=== PATIENT | female | born 2000 | race Native Hawaiian/Other Pacific Islander ===

== ENCOUNTER 2024-02-22 11:10 | Outpatient (CLI) | payer OTHER ==
--- NOTE | 2024-02-23 16:50 | Ultrasound Report ---
PROCEDURE: Pelvic w/Transvaginal INDICATIONS: PCOS TECHNIQUE: Real-time scanning was performed of the pelvic organs, with image documentation. Additional endovagi nal scanning was necessary due to incomplete visualization of the adnexal and endometrial structures by transabdominal scanning. COMPARISON: None. FINDINGS: Uterus: Uterus is anteverted and normal in size at 7.5 x 3.5 x 4.2 cm. The myometrium is heterogene ous. The endometrium measures 12.6 mm in combined thickness and is heterogeneous. No sonographic bakari dence of uterine fibroids. Cervix and vagina are normal. Ovaries: The right ovary measures 2 x 1.3 x 1.1 cm, with a calculated ovarian volume of 1.47 cc. Th e left ovary measures 2.5 x 2 x 2 cm, with a calculated ovarian volume of 5.18 cc. The ovaries have a normal sonographic appearance. Less than 12 follicles can be seen in each ovary. No adnexal priscila s are seen. No cystic lesions measuring greater than 3 cm. Other: Trace pelvic free fluid, likely physiologic. IMPRESSION: 1.Normal sonographic appearance of the uterus. Endometrial thickness is 12.6 mm and heterogeneous. 2.Normal sonographic appearance of the bilateral ovaries. Reviewed by: Jeffry Fernandez MD on 02/23/2024 4:49 PM PDT Approved by: Jeffry Fernandez MD on 02/23/2024 4:49 PM PDT Station ID: [id number]
== END 2024-02-22 11:11 | disposition home or self-care (01) ==
LOC: DI 11:10
PROVIDERS: ATTEND Student in an Organized Health Care Education/Training Program
DX: N91.5 Oligomenorrhea, unspecified (principal); R10.9 Unspecified abdominal pain; Z87.42 Personal history of other diseases of the female genital tract

== ENCOUNTER 2024-03-11 12:36 | Outpatient (CLI) | payer OTHER ==
--- NOTE | 2024-03-11 13:23 | Sleep Patient Instructions ---
Sleep Center Visit Summary - Patient Visit Information Reason for Visit: Initial consult for evaluation of sleep disordered breathing and other sleep issues. - Patient Instructions Instructions Attached: Sleep Study Home Monitor Additional Instructions: You will be completing a sleep study, either an in-lab polysomnography (PSG) or home sleep study (HST). You will follow-up in the sleep care office after the sleep study is completed to hear the results and talk about therapy, if needed. You will be called by our office staff to schedule this appointment, but you may contact us with any questions. - Clinic Information Contact: [facility] [address] [place] [address] [email or web address] T: [phone]
--- NOTE | 2024-03-11 13:25 | SLEEP CARE CONSULTATION ---
Information from patient questionnaire entered by Karina Celestin. I have reviewed and concur with the information entered by Karina Celestin. This document represents the service I personally performed and the decisions made by me, Lala Parks ARNP. History of Present Illness Service Date and Time: 03/11/2024 1236 Reason for Visit: New patient Chief Complaint: reports: Insomnia, Snoring, Observed pauses in breathing, Fatigue, Other (TEETH GRINDING, SLEEP TALKING) Date of Onset: 10+YRS Usual bedtime: 2300 Time it takes to fall asleep: 15-30MINS Snores at night: Yes Observed to quit breathing while asleep: Yes Sleeps alone due to snoring: No Number of times waking at night: 1-2 Reasons for waking at night: reports: Choking (had an experience like this), Snoring, Gasping for air, Bathroom Toss, Turn, or Twitch while sleeping: Yes Recalls having dreams: Yes Usually gets out of bed at: VARIES MOSTLY 0700 Feels refreshed in the morning: No Morning headache: Yes (1-2 times a month) Sleepy or fatigued during the day: Yes Ever fallen asleep while driving: No Takes day naps: Yes (couple times a month) Dreams during day naps: Yes Prior sleep studies: No Additional HPI information: I had the pleasure of seeing JACQUELINE RICARDO today regarding the possibility of her having a sleep disorder. Her current complaints are insomnia, snoring, observed pauses in breathing, fatigue, teeth grinding and sleep talking. Her tells her that she grinds her teeth at night, snoring and pauses in breathing. She says she had ground her teeth since she was a teenager. She feels like she always has a dry throat and wakes up with dry mouth every morning. She has woke up feeling like she is gasping for air and once she felt like she was choking. She does not feel rested in the morning, despite trying to get 7-8 hours of sleep at night. 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 Patient is and lives in . Have you smoked in the past 12 months: Yes (vapes) Cigarettes per day (20/pack): 20 Years of smokin Quit date: 2022 Smoking Pack Years: 6.0 Alcohol use: Yes Alcohol amount and frequency: 1-2 BOTTLES VERY RARE Caffeine use: Yes Caffeine amount and frequency: 1-2 CUPS EVERYDAY Family History Family history of sleep disordered breathing: Yes Family Hx Sleep Apnea: Mother: Snoring, Father: Snoring, Sibling: Snoring, Grandparent: Snoring Allergies and Home Medications Known drug allergies: No Drug allergies reviewed: Yes Home medication list reviewed: Yes (as listed) Allergy and home medication list: Allergies No Known Drug Allergies Allergy (Verified 03/09/24 14:02) Home Medications Cranberry Fruit [Cranberry] See Rx Instructions .ROUTE .COMPLEX 03/09/24 [History Confirmed 03/09/24] Lactobacillus Combination No.4 [Probiotic] See Rx Instructions .ROUTE .COMPLEX 03/09/24 [History Confirmed 03/09/24] [place]-3/Dha/Epa/Fish Oil [Fish Oil 1,000 mg Softgel] See Rx Instructions .ROUTE .COMPLEX 03/09/24 [History Confirmed 03/09/24] Review of Systems Weight gain over past 5 years: 40 Cardiovascular: reports: palpitations, chest pain. denies: high blood pressure Gastrointestinal: reports: heartburn, nausea, diarrhea, abdominal pain Neurological: reports: headaches Psychiatric: reports: anxiety Ear/Nose/Throat: reports: nasal congestion, sinus problems, dry mouth/throat. denies: tonsillectomy Endocrine: reports: sluggishness, too hot or cold Musculoskeletal: reports: neck pain, back pain, muscle pain or cramping Immunologic: reports: sneezing Physical Exam Vital signs obtained and entered by: KARINA Townsend MA Blood Pressure: 113/67 (LEFT ARM) Cuff size: long Heart Rate: 67 O2 Saturation: 98 Height: 5 ft 5 in Weight: 180 lb 9.6 oz Body Mass Index: 30.0 BMI Classification: Obese Neck circumference: 14.75 Mouth and throat: narrow oropharynx Soft palate: long Hard palate: normal Uvula: normal Uvula visualization: 25% Mallampati Class III Tongue: enlarged in size with teeth del cid on lateral edges Tonsils: small Neck: normal w/o lymphadenopathy or thyromegaly Heart: regular rate and rhythm Lungs: clear bilaterally Impression and Plan 1. Suspected Obstructive Sleep Apnea-Hypopnea Syndrome, as suggested by a history of loud and irregular snoring, observed cessation of breath while asleep, gasping or choking in sleep, unrefreshed sleep, cognitive impairment, and excessive daytime sleepiness. Narrow oropharynx and obesity are common predisposing factors for obstructive sleep apnea-hypopnea syndrome. I recommend proceeding to polysomnography to confirm the diagnosis and to assess severity. If the patient has significant sleep disordered breathing, a manual CPAP titration study will also be performed to find the optimal treatment pressure. I informed the patient of what the sleep studies involve and after some discus yamile, obtained agreement to proceed. The pathophysiology of obstructive sleep apnea-hypopnea syndrome was discussed with the patient and health risks of cardiovascular and cerebrovascular disease if not treated. Risks of drowsy driving discussed in detail and patient advised to avoid long distance driving and to anchor tack puller at the first sign of drowsiness. Patient agreed to plan. * Schedule polysomnography +- manual CPAP titration study and return in 1-2 weeks after the study to discuss result and initiate therapy. * Avoid long distance driving or driving when feeling sleepy. * Avoid alcohol, sedative and muscle relaxant around bedtime. * Attempt to lose weight. * Review instructions provided by trained office staff on how to prepare for the sleep study. * Return for follow-up after sleep study completed. Visit Type: In Office Provider Statement: I spent 100% of the Face to Face Visit with the patient with greater than 50% spent counseling the patient and coordination of care.
[2024-03-11 13:28] VITALS: BP 113/67; O2SAT 98
== END 2024-03-11 12:37 | disposition home or self-care (01) ==
LOC: SC 12:36
PROVIDERS: ATTEND Nurse Practitioner Family
DX: R06.83 Snoring (principal); R06.81 Apnea, not elsewhere classified; G47.8 Other sleep disorders; R41.89 Other symptoms and signs involving cognitive functions and awareness; G47.10 Hypersomnia, unspecified; E66.9 Obesity, unspecified; Z68.30 Body mass index [BMI] 30.0-30.9, adult
CPT/HCPCS: 99203; 99212

== ENCOUNTER 2024-03-27 09:12 | Outpatient (CLI) | payer OTHER | END 2024-03-27 09:13 | disposition home or self-care (01) | LOC: SC 09:12 | PROVIDERS: ATTEND Nurse Practitioner Family | DX: G47.33 Obstructive sleep apnea (adult) (pediatric) (principal); R09.02 Hypoxemia; E66.9 Obesity, unspecified; Z68.30 Body mass index [BMI] 30.0-30.9, adult | CPT/HCPCS: 95806 ==

== ENCOUNTER 2024-04-28 14:21 | Outpatient (CLI) | payer OTHER ==
--- NOTE | 2024-04-28 14:59 | Sleep Patient Instructions ---
Sleep Center Visit Summary - Patient Visit Information Reason for Visit: Sleep study follow-up - Patient Instructions Instructions Attached: CPAP Additional Instructions: You are being started on CPAP therapy with pressure setting at 4-15 cmH2O. You will need to call the sleep care office to set up your follow up once you have your CPAP machine to check compliance and response to therapy at that time. You may call the office with any concerns about pressure feeling too low or too much for adjustment, if needed. You should contact DME supplier for any questions or concerns about mask or equipment. Please call office to schedule a follow up appointment in the sleep care office one month after obtaining new device. - Clinic Information Contact: [facility] [address] [place] [address] [email or web address] T: [phone]
--- NOTE | 2024-04-28 15:01 | SLEEP CARE CONSULTATION ---
Information from patient questionnaire entered by Karina Celestin. I have reviewed and concur with the information entered by Karina Celestin. This document represents the service I personally performed and the decisions made by me, Lala Parks ARNP. History of Present Illness Service Date and Time: 04/28/2024 142 Initial [place] Sleepiness Scale score: 11 (03/09/24) Current [place] Sleepiness Scale score: 13 (04/28/24) Additional HPI information: JACQUELINE RICARDO returns for follow up and results of the recently performed home sleep study. The sleep study done on 03/27/2024 showed mild obstructive sleep apnea with an average AHI of 5.9 and adryan oxygen saturation of 85%. I explained the pathophysiology behind obstructive sleep apnea. We then spent quite a bit of time discussing different treatment options. For mild obstructi ve sleep apnea, surgery and oral appliance are alternatives to nasal CPAP therapy but in moderate or severe cases, nasal CPAP is the most effective and reliable treatment. I reviewed the impact of weight changes on sleep apnea and strongly recommended losing weight. After some discussion, the patient opted to go with the nasal CPAP therapy. Nasal autoCPAP set at 4-15 cmH20 will be ordered with rationale explained. A manual titration study will be ordered if unable to find optimal pressure with office adjustments. I explained how CPAP machine works and what to expect when using the machine. Using CPAP every night in order to get used to it was emphasized. Patient advised to put CPAP mask on before getting into bed so as not to fall asleep without CPAP. To assist acclimation to CPAP use, it could also be used for a short time during day while reading or watching TV. The patient was instructed to call the CPAP supplier to discuss any mechanical problem that may occur. If the mask given is uncomfortable or is difficult to keep on through the night even with adjustment, contact the CPAP supplier as many will replace with another mask style if notified before 30 days. If snoring or perceives is not getting enough air or too much air from the machine, notify this office. [Patient counseled not drink alcohol less than 4 hours before bedtime as it can increase snoring and apnea. ][Patient does not drink alcohol. ] Patient was cautioned about risks of drowsy driving until sleepiness symptoms resolve. [Patient denies drowsy driving. ][[facility] patient education on snoring and sleep apnea given and reviewed.] Sleep Study - Results Type of Sleep Study: Home sleep study (COMPLETED 03/27/24) Prior sleep studies: No Polysomnography/Home Sleep Study results: Physician Impression: The quality of the study is good. The length of the study is adequate (> 240 minutes). Please also see the tabulated and graphic data. 1. Obstructive Sleep Apnea-Hypopnea (ICD-10 G47.33), mild, with an AHI of 5.9/hr and adryan SaO2 of 85%. During the study, the patient had 35 apneas (35 obstructive, 0 central, 0 mixed) and 14 hypopneas. The longest episode lasted 105.0 seconds. The respiratory events occurred more frequently during non-supine sleep (supine AHI was 3.9 and non-supine, 7.87). 2. Hypoxemia (ICD-10 R09.02), mild, with the lowest oxygen saturation of 85 % and 6.1 minutes with SaO2 under 90%. Baseline oxygen saturation was normal (Average oxygen saturation was 96%). Allergies and Home Medications Known drug allergies: No Drug allergies reviewed: Yes Home medication list reviewed: Yes ( control pill) Allergy and home medication list: Allergies No Known Drug Allergies Allergy (Verified 03/11/24 13:00) Review of Systems Review of systems same as previous: Yes (NO CHANGE) Physical Exam Vital signs obtained and entered by: KARINA Townsend MA Blood Pressure: 125/63 (LEFT ARM) Cuff size: regular Heart Rate: 74 O2 Saturation: 99 Height: 5 ft 5 in Weight: 175 lb 12.8 oz Weight change since last visit: 5 lb loss Body Mass Index: 29.2 BMI Classification: Overweight Impression and Plan 1. Obstructive Sleep Apnea-Hypopnea Syndrome, mild, with lowest oxygen saturation of 85%. Obviously this is the cause of the patients symptoms of unrefreshed sleep, and excessive daytime sleepiness. As mentioned above, the patient will be started on nasal autoCPAP therapy with pressure set at 4-15 cmH2 O. A manual titration study will be completed if unable to find optimal treatment pressure with office adjustments. Compliance guidelines also reviewed. A copy of compliance guidelines will be given for reference at check out. Because the apnea is more severe when sleeping non-supine, I instructed to avoid sleeping non-supine using pillow positioning until able to start CPAP use. 2. Hypoxemia, mild, with a adryan oxygen saturation of 85% and 6.1 minutes spent under 90%. The baseline oxygen saturation was normal with an average oxygen saturation of 96%. 2. Overweight, unspecified. Currently patients BMI is 29.2. She has lost weight. Obesity increases the risk of apnea, CPAP pressure requirements and overall health risks especially cardiovascular and diabetes. Thus patient is advised to continue to try to lose weight. * Nasal auto CPAP therapy, pressure at 4-15 cm H2O. * Attempt to lose weight. * Avoid alcohol consumption near bedtime. * Avoid supine sleep until using CPAP. * The patient is again cautioned about driving until sleepiness completely resolves. * Return one month after CPAP obtained. I will assess response to therapy and compliance at that time. Counseling Topics: Weight loss health impact Prescriptions: Auto CPAP Plan: start CPAP and compliance follow up Visit Type: In Office Time Spent with Patient (minutes): 17 Provider Statement: I spent 100% of the Face to Face Visit with the patient with greater than 50% spent counseling the patient and coordination of care.
[2024-04-28 15:04] VITALS: BP 125/63; O2SAT 99
== END 2024-04-28 14:22 | disposition home or self-care (01) ==
LOC: SC 14:21
PROVIDERS: ATTEND Nurse Practitioner Family
DX: G47.33 Obstructive sleep apnea (adult) (pediatric) (principal); R09.02 Hypoxemia; E66.3 Overweight; Z68.29 Body mass index [BMI] 29.0-29.9, adult
CPT/HCPCS: 99212; 99213